=== PATIENT | female | born 1980 | race Caucasian/White ===

== ENCOUNTER 2017-11-03 05:06 | Day surgery (SDC) | payer BC ==
[2017-11-02 15:34] VITALS: BMI 21.6
[2017-11-03] MEDS ORDERED: IBUPROFEN 400 MG TABLET (FP) PO PRN (08:16)
[2017-11-03] MEDS ORDERED: ACETAMINOPHEN 325 MG TABLET (FP) PO PRN (08:16)
--- NOTE | 2017-11-03 08:16 | HP ---
History & Physical Update - History History: No Change - Physical Physical: No Change - Assessment Assessment: No Change - Plan Plan: No Change
--- NOTE | 2017-11-03 08:19 | OP ---
Operative Note - Note: Operative Date: 11/03/17 Pre-Operative Diagnosis: HPV. Cervical Dysplasia Findings: LEEP Cone Post-Operative Diagnosis: Same as Pre-op Surgeon: Mile Orellana Anesthesia: General Operative Report Dictated: Yes
[2017-11-03] MEDS ORDERED: oxyCODONE HCL 5 MG TABLET PO PRN (09:56)
[2017-11-03] MEDS ORDERED: ONDANSETRON 4 MG/2 ML VIAL IVPUSH PRN (09:56)
[2017-11-03] MEDS ORDERED: LACTATED RINGERS SOLUTION 1,000 ML IV SCH (10:00)
[2017-11-03] MEDS ORDERED: NEOSTIGMINE METHYLSULFATE 0.5 MG/ML - 10 ML MDV ONE (10:52)
[2017-11-03] MEDS ORDERED: MIDAZOLAM HCL 2 MG/2 ML SINGLE DOSE VIAL ONE (10:52)
[2017-11-03] MEDS ORDERED: GLYCOPYRROLATE 0.2 MG/1 ML VIAL ONE (10:53)
[2017-11-03] MEDS ORDERED: PROPOFOL 20 ML ONE (11:54)
--- NOTE | 2017-11-03 12:41 | OP ---
DATE OF OPERATION: 11/03/2017 PREOPERATIVE DIAGNOSIS: Human papillomavirus and cervical dysplasia. OPERATION: Loop electrocautery excision procedure cone. SURGEON: Mile Han MD ANESTHESIA: General. DESCRIPTION OF PROCEDURE: The patient was taken to the operating room and placed in dorsal lithotomy position, prepped and draped in the usual sterile fashion. A time-out was performed in accordance to hospital regulation. A speculum was placed in the vagina. Anterior lip of the cervix was grasped with a single-tooth tenaculum. Lugol's was then placed on the cervix. A large LEEP cone was then performed. Endocervical LEEP was then performed and submitted to Pathology. A ball was used to cauterize the cervix. EBL 3 mL. All instruments were removed. The patient tolerated the procedure well and was taken to the recovery room in stable condition. Bee [id number]
[2017-11-03 13:09] VITALS: TEMP 98
[2017-11-03 14:58] VITALS: PULSE 70
[2017-11-03 17:59] VITALS: BP 124/73
--- NOTE | 2017-11-07 14:08 | PATH ---
Surgical Pathology Report Patient Name: BHAVANA RAMIREZ [facility]. Rec. #: [id number] /Age/Gender: 1980 (Age: 37) / F Account: [id number] Location: [facility] SURGICAL Taken: 11/03/2017 Received: 11/03/2017 Reported: 11/07/2017 Physicians: Mile Orellana M.D. Specimen(s) Received A: CERVICAL BIOPSY B: ENDOCERVICAL BX Clinical History Preoperative diagnosis: Cervical dysplasia Final Diagnosis A. CERVIX, LOOP ELECTROSURGICAL EXCISION PROCEDURE (LEEP): CERVICAL SQUAMOUS AND ENDOCERVICAL MUCOSA WITH FOCAL HIGH GRADE SQUAMOUS INTRAEPITHELIAL LESION (CERVICAL INTRAEPITHELIAL NEOPLASIA 2/ EUFEMIA 2) INVOLVING 12-3:00 QUADRANT; AREAS OF LOW GRADE SQUAMOUS INTRAEPITHELIAL LESION ALSO PRESENT. SURGICAL RESECTION MARGINS: FOCALLY INVOLVED BY HIGH GRADE DYSPLASIA (12-3:00). TRANSFORMATION ZONE: PRESENT. B. ENDOCERVICAL, BIOPSY: BENIGN ENDOCERVICAL MUCOSA WITH ACUTE AND CHRONIC CERVICITIS AND SQUAMOUS METAPLASIA. NO DYSPLASIA IDENTIFIED. Comment: Immunohistochemical stains performed at [place], [place] ([id number]) and interpreted at [facility] show p16 shows weak patchy positivity (parts A & B). Proliferative marker, ki-67 is utilized to evaluate this case (parts A & B). Electronically Signed Maday Escamilla M.D. Gross Description A. Received in formalin labeled "cervical biopsy," is a 1.8 cm in diameter g exudate annular portion of soft tissue, consistent with a cervical LEEP cone biopsy. There is a apt in the specimen which is arbitrarily designated the 12:00 aspect. The specimen is surface by a silveira-pink, shiny glistening mucosa. The specimen is inked blue, serially sectioned and entirely submitted in 4 cassettes follows: 1-12:00 to 3:00; 2-3:00 to 6:00; 3-6:00 to 9:00; 4-9:00 to 12:00. B. Received in formalin labeled "endocervical biopsy," is a 1.6 cm in diameter annular, unoriented portion of soft tissue with a central os, consistent with a portion of cervix. The outer surface is cauterized. The specimen is inked blue, serially sectioned and entirely and sequentially submitted in 4 cassettes. DL11/03/2017 saudi11/03/2017
== END 2017-11-03 16:10 | disposition home or self-care (01) ==
LOC: JASU-SURG 05:06
PROVIDERS: ATTEND Obstetrics & Gynecology
PROC: 0UBC7ZX Excision of Cervix, Via Natural or Artificial Opening, Diagnostic (ICD-10-PCS; principal; 2017-11-03 10:30)
DX: A63.0 Anogenital (venereal) warts (principal); N87.9 Dysplasia of cervix uteri, unspecified
CPT/HCPCS: 86850; 86900; 86901; 88305-TC; 88307-TC; 94760